=== PATIENT | male | born 1960 | race Caucasian/White ===

== ENCOUNTER 2023-07-26 11:04 | Day surgery (SDC) | payer OTHER, SELFPAY ==
[2023-07-26 11:31] VITALS: BP 134/82; PULSE 69; RESP 16; TEMP 36.7; O2SAT 96; BMI 35.8
--- NOTE | 2023-07-26 12:10 | HO.ANESPROP2 ---
[facility] Past Medical History Medical History Skin cancer HLD (hyperlipidemia) HTN (hypertension) Surgical History Surgical History H/O knee surgery Hx of tonsillectomy H/O colonoscopy History of Problems with Anesthesia: No Social History Social History Advance Directives: No Advance Directives Information Provided: Yes Meds Allergies Allergy/AdvReac Type Severity Reaction Status Date / Time No Known Allergies Allergy Verified 07/25/23 10:28 Home Medications Medication Instructions Recorded Confirmed Last Taken Type Aspir-81 1 tab PO DAILY 07/25/23 07/25/23 Unknown History rosuvastatin 5 mg tablet 5 mg PO DAILY 07/25/23 07/25/23 Unknown History valsartan 80 mg tablet 80 mg PO DAILY 07/25/23 07/25/23 Unknown History Exam Exam Date and Time: July 26, 2023 1210 Height,Weight and Vital Signs: Height 5 ft 5 in Weight 97.522 kg Last Vital Signs Temp 98.1 F 07/26/23 11:31 Pulse 69 07/26/23 11:31 Resp 16 07/26/23 11:31 BP 134/82 07/26/23 11:31 Pulse Ox 96 07/26/23 11:31 O2 Del Method Room Air 07/26/23 11:31 Airway Mallampati Class: III (full kahn) TM Dist: >3cm Neck ROM: Full Loose/Missing/Broken Teeth: No Heart: RRR Lungs: CTA Assessment and Plan Assessment Anesthesia Assessment: Anesthesia Plan Discussed and Chart Reviewed Final Anesthetic Review History of Problems with Anesthesia: No NPO: Yes ASA Class: II Final Preanesthetic Review: Meds/Allgs Chart Reviewed, Consent Obtained/Reviewed and Anes Risks/Benef Reviewed Patient Risk: Low Procedure Risk: Low Anesthetic Plan Anesthetic Plan: MAC: Disposition: Standard PACU
--- NOTE | 2023-07-26 12:25 | MHC.SHP ---
Pre-Procedural Eval Section A Date of Service: 07/26/23 Section B Chief Complaint: Encounter for screening for malignant neoplasm of Details of Present Illness: seer h&p no changes Relevant Family History (Specify if Yes): No Relevant Social History: None Present Medications: see Short Stay Collaborative assessment Medical History: No relevant PMH History of Previous Operations: No relevant previous surgery Allergies: Allergies Allergy/AdvReac Type Severity Reaction Status Date / Time No Known Allergies Allergy Verified 07/25/23 10:28 Review of Systems Sugical H&P ROS: Negative: Constitution, Cardiovascular, Respiratory, Neurological, Psychiatric, Hem-Onc, Allergic/Immunologic, Gastrointestinal, Genitourinary, Musculoskeletal, Integumentary, Endocrine and Eyes/Ears/Nose/Throat Exam Surgical H&P Exam: Normal: HEENT, Normal: Heart, Normal: Lungs, Normal: Extremities, Normal: Abdomen, Normal: Skin and Normal: Neurological Plan Diagnosis/Plan: Unchanged I have reviewed the history and physical and performed a pertinent physical examination on my patient. No changes have occurred unless specified. Time Spent With Patient Time: Total time managing care of this patient today ____ minutes.
[2023-07-26 13:10] VITALS: BP 110/66; PULSE 69; RESP 18; TEMP 36.4; O2SAT 97
[2023-07-26 13:25] VITALS: BP 136/77; PULSE 70; RESP 15; O2SAT 98
[2023-07-26 13:40] VITALS: BP 138/83; PULSE 71; RESP 14; TEMP 36.1; O2SAT 99
--- NOTE | 2023-07-26 14:27 | PM.OP ---
Brief Operative Note Date of Service: 07/26/23 Pre-op diagnosis: screening Post-op diagnosis: same Procedure: colonoscopy Surgeon: Elías Christy MD Anesthesia: MAC Was an Merchandise Adjustment Clerk used for this Procedure?: No Estimated blood loss (mL): 2 Pathology: other Condition: stable Disposition: PACU
--- NOTE | 2023-07-26 21:36 | OP_ITS ---
DATE OF SERVICE: 07/26/2023 SURGEON: Elías Christy MD INDICATIONS: Colon cancer screening. PREOPERATIVE DIAGNOSIS: POSTOPERATIVE DIAGNOSIS: PROCEDURE PERFORMED: Colonoscopy to the terminal ileum with snare polypectomy. ESTIMATED BLOOD LOSS: COMPLICATIONS: ANESTHESIA: Monitored anesthesia care. ASSISTANTS: SPECIMENS: DESCRIPTION OF PROCEDURE: A history and physical was performed. The risks and benefits of the procedure were explained to the patient. Informed consent was obtained. The patient was placed in the left lateral decubitus position. A digital rectal exam was performed and was found to be normal. The Olympus pediatric video colonoscope was introduced into the rectum and advanced to the cecum. The cecum was identified by transillumination, palpation, and identification of ileocecal valve. Examination was performed. The scope was removed. He tolerated the procedure well and was returned to the recovery area in stable condition. FINDINGS: The terminal ileum was examined and appeared normal. The visualized colonic mucosa was within normal limits without evidence of masses or ulcers. Two polyps were identified, both measured less than 10 mm, and were removed with a snare. The quality of the prep was good. The polyps were located at 95 cm and 45 cm. Retroflexed examination showed some moderate-sized internal hemorrhoids. IMPRESSION: Colon polyps. RECOMMENDATION: Follow up the biopsy results. MD CYNDI Rodriguez/VALENTÍN / [id number]
== END 2023-07-26 14:10 | disposition home or self-care (01) ==
PROVIDERS: PCP Internal Medicine; Visit Provider Internal Medicine Gastroenterology
PROC: 0DJD8ZZ Inspection of Lower Intestinal Tract, Via Natural or Artificial Opening Endoscopic (ICD-10-PCS; CPT 45378; principal; 2023-07-26 12:10)
DX: Z12.11 Encounter for screening for malignant neoplasm of colon (principal); Z86.010 Personal history of colon polyps; D12.3 Benign neoplasm of transverse colon; K63.5 Polyp of colon; K64.8 Other hemorrhoids; I10 Essential (primary) hypertension; E78.5 Hyperlipidemia, unspecified; Z85.828 Personal history of other malignant neoplasm of skin; Z87.891 Personal history of nicotine dependence; Z79.82 Long term (current) use of aspirin; Z79.899 Other long term (current) drug therapy; Z98.890 Other specified postprocedural states
CPT/HCPCS: 45385; 88305